=== PATIENT | male | born 1955 | race Caucasian/White ===

== ENCOUNTER 2017-12-30 21:30 | Observation (INO) | payer BC ==
[~2017-12-30] VITALS: Ht 188 cm; Wt 114.8 kg
[~2017-12-30 21:30] MED LIST: ASPIRIN325 PO; HYDROCODONE-APA1 TA1 PO; INDOMETHACIN 5050 M1 PO; INDOMETHACIN 5050 MG PO; OXYCODONE HCL 55 MG PO; XANAX 0.25 MG0.25 MG PO
[2017-12-30 21:36] VITALS: BP 166/96
[2017-12-30 22:02] LABS: ABSOLUTE BASOPHILS 0.1 thou/uL (0.0-0.2); ABSOLUTE EOSINOPHILS 0.3 thou/uL (0.0-0.7); ABSOLUTE LYMPHOCYTES 2.1 thou/uL (0.8-5.3); ABSOLUTE MONOCYTES 0.8 thou/uL (0.0-1.2); ABSOLUTE NEUTROPHILS 9.7 thou/uL (1.6-8.1); BASOPHILS 0.8 %; EOSINOPHILS 2.3 %; HEMATOCRIT 47.6 % (42.0-52.0); HEMOGLOBIN 16.4 gm/dL (14.0-18.0); LYMPHOCYTES 16.1 %; MCH 31.4 pg (26.0-34.0); MCHC 34.4 g/dL (28.0-37.0); MCV 91.3 fL (80.0-100.0); MONOCYTES 6.5 %; MPV 8.1 fl. (7.2-11.1); NUCLEATED RBCS 0 /100WBC; PLATELET COUNT* 226 thou/uL (150-400); POLYS 74.3 %; RBC 5.21 mil/uL (4.50-6.00); RDW-CV 13.5 % (10.5-14.5)
[2017-12-30 22:09] LABS: ANION GAP 6 mmol/L (7-16); BUN 18 mg/dL (7-18); CALCIUM 9.6 mg/dL (8.5-10.1); CHLORIDE 101 mmol/L (98-107); CO2 32 mmol/L (21-32); CREATININE 0.8 mg/dL (0.6-1.3); GLUCOSE 103 mg/dL (70-99); POTASSIUM 4.4 mmol/L (3.5-5.1); SODIUM 139 mmol/L (136-145)
[2017-12-30 22:16] LABS: ALBUMIN 4.1 g/dL (3.4-5.0); ALKALINE PHOSPHATASE 79 U/L (46-116); LIPASE 106 U/L (73-393); SGOT 18 U/L (15-37); SGPT 23 U/L (30-65); TOTAL BILIRUBIN 0.4 mg/dL (<0.1-1.0); TOTAL PROTEIN 8.5 g/dL (6.4-8.2); TROPONIN-I LEVEL <0.06 ng/mL (<0.06)
[2017-12-30 22:59] LABS: URINE BILIRUBIN NEGATIVE (Negative); URINE BLOOD TRACE (Negative); URINE CLARITY CLEAR; URINE COLOR YELLOW; URINE GLUCOSE-RANDOM NEGATIVE (Negative); URINE KETONES TRACE (Negative); URINE LEUKOCYTES-REFLEX NEGATIVE (Negative); URINE NITRITE-REFLEX NEGATIVE (Negative); URINE PROTEIN NEGATIVE (Negative); URINE UROBILINOGEN 0.2 E.U./dl (0.2-1.0)
[2017-12-31 01:11] VITALS: BP 147/79
[2017-12-31 01:47] VITALS: BP 161/85
[2017-12-31 02:19] VITALS: BP 165/95
[2017-12-31 04:58] LABS: ABSOLUTE BASOPHILS 0.1 thou/uL (0.0-0.2); ABSOLUTE EOSINOPHILS 0.1 thou/uL (0.0-0.7); ABSOLUTE LYMPHOCYTES 1.8 thou/uL (0.8-5.3); ABSOLUTE MONOCYTES 0.7 thou/uL (0.0-1.2); ABSOLUTE NEUTROPHILS 8.7 thou/uL (1.6-8.1); BASOPHILS 0.6 %; EOSINOPHILS 1.1 %; HEMATOCRIT 44.1 % (42.0-52.0); HEMOGLOBIN 15.2 gm/dL (14.0-18.0); LYMPHOCYTES 15.6 %; MCH 31.5 pg (26.0-34.0); MCHC 34.4 g/dL (28.0-37.0); MCV 91.4 fL (80.0-100.0); MONOCYTES 6.4 %; MPV 8.6 fl. (7.2-11.1); NUCLEATED RBCS 0 /100WBC; PLATELET COUNT* 193 thou/uL (150-400); POLYS 76.3 %; RBC 4.82 mil/uL (4.50-6.00); RDW-CV 13.4 % (10.5-14.5); WBC 11.4 thou/uL (4.0-11.0)
[2017-12-31 05:29] LABS: ALBUMIN 3.8 g/dL (3.4-5.0); CALCIUM 9.4 mg/dL (8.5-10.1); CREATININE 0.8 mg/dL (0.6-1.3); POTASSIUM 4.3 mmol/L (3.5-5.1); TOTAL BILIRUBIN 0.6 mg/dL (<0.1-1.0); TOTAL PROTEIN 7.5 g/dL (6.4-8.2)
--- NOTE | 2017-12-31 06:32 | NUR ---
ASSESSMENT COMPLETE. PT ADMITTED WITH ABDOMINAL PAIN. PT REPORTS PAIN IN EPIGASTRIC AREA. IV FENTANYL AND GI COCTAIL REPORTED TO HELP. PT GIVEN AMBIEN PER REQUEST FOR SLEEP. PT DENIES NEED FOR NAUSEA MEDICATION SINCE ADMISSION TO FLOOR. PT IS NPO AT THIS TIME. PT HAS IV FLUIDS INFUSING. PT IS UP AD CHEY. SEE ASSESSMENT AND VITALS FOR OTHER DETAILS. CALL LIGHT WITHIN REACH, WILL CONTINUE PLAN OF CARE
[2017-12-31 08:30] VITALS: BP 142/81
[2017-12-31] MEDS ORDERED: OMEPRAZOLE40 MG PO (10:14)
[2017-12-31 10:32] VITALS: BP 165/95
--- NOTE | 2017-12-31 11:15 | NUR ---
PATIENT DISCHARGED TO HOME. DISCHARGE PAPERS REVIEWED AND SIGNED. PRESCRIPTION AND INFORMATION SHEETS GIVEN. IV REMOVED. PATIENT DENIES ANY FURTHER NEEDS. PATIENT TAKEN AMBULATORY TO EXIT. LEFT WITH AND SON.
--- NOTE | 2017-12-31 11:41 | EKG ---
[place] [address] ELECTROCARDIOGRAM REPORT Name: SONU OROPEZA Room: [address]#: [id number] Admission: 12/31/17 Attend Phys: Deo Mendez MD Discharge: 12/31/17 Date of : 59 Report #: [id number] THIS REPORT FOR: //name// [facility] ED Test Date: 2017-12-30 Test Time: 21:57:37 Pat Name: SONU OROPEZA Department: Room: Gender: Final [employer]: : 1955 Requested By: Lefty Arevalo Order Number: [id number] MD: Nilson Loja Measurements Intervals [place] Rate: 56 P: 57 [place]: 168 QRS: 24 QRSD: 96 T: 40 QT: 426 QTc: 412 Interpretive Statements Sinus rhythm Baseline wander in lead(s) V4 Compared to ECG 10/18/2015 09:21:56 No significant changes Electronically Signed On 12-31-2017 11:41:31 CDT by Nilson Loja [email or web address] <ELECTRONICALLY SIGNED> By: Nilson Loja MD, [facility] 12/31/17 [id number] Nilson Loja MD, [facility] /EPI
== END 2017-12-31 11:15 | disposition home or self-care (01) ==
LOC: M.ERS 21:30 → M.TBA-ER 12-31 00:38 → M.3W 12-31 01:01 → M.TBA-ER 12-31 01:18 → M.3W 12-31 01:32
PROVIDERS: Emergency Medicine; ADMIT Internal Medicine
DX: R10.9 Unspecified abdominal pain (principal); R11.2 Nausea with vomiting, unspecified; Z98.890 Other specified postprocedural states

== ENCOUNTER 2018-04-18 20:22 | Emergency (ER) | payer BC ==
[~2018-04-18] VITALS: Ht 188 cm; Wt 113.4 kg
[~2018-04-18 20:22] MED LIST changes: +OMEPRAZOLE40 MG PO
[2018-04-18] MEDS ORDERED: PERCOCET PO (21:42)
[2018-04-18 21:54] VITALS: BP 128/66
== END 2018-04-18 21:55 | disposition home or self-care (01) ==
LOC: M.ERS 20:22
DX: S42.291A Other displaced fracture of upper end of right humerus, initial encounter for closed fracture (principal); M10.9 Gout, unspecified; W22.8XXA Striking against or struck by other objects, initial encounter; Y93.89 Activity, other specified; Y92.89 Other specified places as the place of occurrence of the external cause; Y99.8 Other external cause status